=== PATIENT | male | born 1980 | race Caucasian/White ===

== ENCOUNTER 2024-04-20 19:06 | Emergency (ER) | payer BC ==
[~2024-04-20] VITALS: Ht 182.9 cm; Wt 106.1 kg
[2024-04-20] MEDS: KETOROLAC TROMETHAMINE 60 MG/2 ML VIAL IM ONE (20:37)
[2024-04-20] MEDS ORDERED: INDOCIN50 MG PO (21:21)
[2024-04-20 21:41] VITALS: PULSE 66; RESP 16; TEMP 98.9; O2SAT 97
== END 2024-04-20 21:43 | disposition home or self-care (01) ==
LOC: FSED 19:25
DX: M25.561 Pain in right knee (principal)
CPT/HCPCS: 80053; 85025; 85379; 99284; J1885